=== PATIENT | female | born 1965 | race Two or more races ===

== ENCOUNTER 2017-05-18 09:59 | Emergency (ER) | payer OTHER ==
[~2017-05-18] VITALS: Ht 154.9 cm; Wt 70.8 kg
[~2017-05-18 09:59] MED LIST: CLINDAMYCIN HC300 MG PO; INVOKANA100 MG PO; KEFLEX500 M2 PO; LEVEMIR FL100 UNIT/1 SUBQ; LISINOPRIL5 MG PO; NOVOLOG FL100 UNIT/1 SUBQ; TYL325 PO
== END 2017-05-18 11:15 | disposition home or self-care (01) ==
LOC: CED 09:59
DX: L03.211 Cellulitis of face (principal); E11.9 Type 2 diabetes mellitus without complications; Z79.4 Long term (current) use of insulin
CPT/HCPCS: 99283